=== PATIENT | female | born 1930 | race Caucasian/White ===

== ENCOUNTER 2019-03-21 15:23 | Inpatient (IN) | payer OTHER ==
[~2019-03-21] VITALS: Ht 157.5 cm; Wt 60.9 kg
[2019-03-21] MEDS ORDERED: ONDANSETRON HCL/PF 4 MG/2 ML VIAL IVP ONE (15:30)
[2019-03-21] MEDS ORDERED: IV NS 0.9% 500 ML BAG IV ONE (15:30)
[2019-03-21] MEDS ORDERED: FAMOTIDINE/PF INJ 20 MG/2 ML VIAL IV ONE ×2 (15:30→15:43)
[2019-03-21] MEDS ORDERED: ONDANSETRON HCL/PF 4 MG/2 ML VIAL ONE ×2 (15:43→16:14)
[2019-03-21 15:49] LABS: BASOPHILS % (AUTO) 0.1 % (0.0-2.0); HEMATOCRIT 35 % (33-45); HEMOGLOBIN 11.6 g/dL (11.5-14.8); LYMPHOCYTES # (AUTO) 0.1 /CMM (0.8-4.8); LYMPHOCYTES % (AUTO) 1.1 % (20.0-44.0); MEAN CORPUSCULAR HGB CONC 33 g/dl (31.0-36.0); MEAN CORPUSCULAR VOLUME 96 fL (82-100); MONOCYTES % (AUTO) 11.3 % (2.0-12.0); NEUTROPHILS # (AUTO) 7.7 /CMM (1.8-8.9); NEUTROPHILS % (AUTO) 87.5 % (43.0-81.0); PLATELET COUNT (AUTO) 391 /CMM (150-450); WHITE BLOOD COUNT (AUTO) 8.8 K/uL (4.3-11.0)
[2019-03-21] MEDS ORDERED: LORA-259 PO (15:56)
[2019-03-21] MEDS ORDERED: HYDR-4384 PO (15:56)
[2019-03-21] MEDS ORDERED: MAGN400O6 PO (15:56)
[2019-03-21] MEDS ORDERED: MULT-447 PO (15:56)
[2019-03-21] MEDS ORDERED: CHOL200026 PO (15:56)
[2019-03-21] MEDS ORDERED: ASCO500T9 PO (15:56)
[2019-03-21] MEDS ORDERED: ONDA4TAB10 PO (15:56)
[2019-03-21] MEDS ORDERED: LACT10SO PO (15:56)
[2019-03-21] MEDS ORDERED: ZOLP5TAB2 PO (15:56)
[2019-03-21] MEDS ORDERED: FOLI0.8T PO (15:56)
[2019-03-21] MEDS ORDERED: CALC500T52 PO (15:56)
[2019-03-21] MEDS ORDERED: LATA2.5D7 EACHEYE (15:56)
[2019-03-21] MEDS ORDERED: AMIN30LI2 PO (15:56)
[2019-03-21] MEDS ORDERED: ACET100V5 NEB (15:56)
[2019-03-21] MEDS ORDERED: METH5TAB6 PO (15:56)
[2019-03-21] MEDS ORDERED: BISA10SU11 RC (15:56)
[2019-03-21] MEDS ORDERED: IPRA3AMP23 IH (15:56)
[2019-03-21] MEDS ORDERED: ACET-868 PO (15:56)
[2019-03-21] MEDS ORDERED: LEVA0.31 IH (15:56)
[2019-03-21] MEDS ORDERED: FERR325T24 PO (15:56)
[2019-03-21] MEDS ORDERED: NA P133E RC (15:56)
[2019-03-21] MEDS ORDERED: METH2.5T PO (15:56)
[2019-03-21 16:03] LABS: APPEARANCE,URINE Clear (CLEAR); BILIRUBIN,URINE SMALL (NEGATIVE); BLOOD, URINE Negative Ery/uL (NEGATIVE); COLOR,URINE Dark (YELLOW); KETONES,URINE Negative (NEGATIVE); LEUKOCYTE ESTERASE ,URINE Negative (NEGATIVE); NITRITE, URINE Negative (NEGATIVE); PROTEIN,URINE Trace mg/dl (NEGATIVE); UGLUCOSE Negative (NEGATIVE); UROBILINOGEN,URINE 0.2 EU/dL (0.2)
[2019-03-21 16:16] LABS: ALANINE AMINOTRANSFERASE 23 U/L (12-78); ALBUMIN 2.2 g/dL (3.4-5.0); ALKALINE PHOSPHATASE 140 U/L (46-116); ASPARTATE AMINOTRANSFERASE 25 U/L (15-37); BILIRUBIN,DIRECT 0.2 mg/dL (0.0-0.2); BILIRUBIN,TOTAL 0.4 mg/dL (0.2-1.0); CALCIUM, SERUM 9.2 mg/dL (8.5-10.1); CARBON DIOXIDE 16 mmol/L (21-32); CHLORIDE 92 mmol/L (98-107); CREATININE 4.2 mg/dL (0.6-1.3); GLUCOSE 135 mg/dL (74-106); LIPASE 181 U/L (73-393); POTASSIUM 5.7 mmol/L (3.5-5.1); SODIUM SERUM 127 mmol/L (136-145); TOTAL PROTEIN, SERUM 6.1 g/dL (6.4-8.2)
[2019-03-21 16:17] LABS: BACTERIA,URINE None seen /HPF (None Seen); RBC,URINE NONE SEEN /HPF (0-2); SQUAMOUS EPITHELIAL CELL,UR Rare /HPF (None Seen); URINE AMORPHOUS PHOSPHATES Many /HPF (None Seen); WBC,URINE NONE SEEN /HPF (0-3)
[2019-03-21 16:22] LABS: UREA NITROGEN, BLOOD 114 mg/dL (7-18)
[2019-03-21] MEDS ORDERED: ONDANSETRON HCL/PF 4 MG/2 ML VIAL IV ONE ×2 (16:30→20:30)
[2019-03-21] MEDS ORDERED: IV NS 0.9% 1,000 ML BAG IV ONE ×2 (17:30→20:30)
[2019-03-21] MEDS ORDERED: PROCHLORPERAZINE EDISYLATE 10 MG/2 ML VIAL IVP ONE (23:30)
[2019-03-22] VITALS (7 sets, daily range): BP systolic 104–119; BP diastolic 45–75
[2019-03-22] MEDS ORDERED: PROCHLORPERAZINE EDISYLATE 10 MG/2 ML VIAL ONE (00:46)
[2019-03-22 03:28] LABS: ABG BASE EXCESS -13.8 mmol/L; ABG OXYGEN SATURATION 86.9 % (92.0-98.5); ABG PCO2 22.4 mmHg (35.0-45.0); ABG PO2 59.3 mmHg (75.0-100.0); AaDO2 200.1 mmHg; COHb 0.3 % (0.5-1.5); MetHb 0.5 % (0.0-1.5); O2Hb 86.2 % (94.0-97.0); SITE, ABG Left Radial; VENT MODE, BG 4L NC
[2019-03-22] MEDS ORDERED: IV NS 0.9% 1,000 ML BAG IV SCH (04:00)
[2019-03-22] MEDS ORDERED: IV NS 0.9% 1,000 ML IV PRN ×2 (05:00)
[2019-03-22] MEDS ORDERED: SODIUM POLYSTYRENE SULFONATE 15 G/60 ML BOTTLE PO ONE (05:30)
[2019-03-22] MEDS ORDERED: SODIUM POLYSTYRENE SULFONATE 15 G/60 ML BOTTLE ONE (05:46)
[2019-03-22 06:08] LABS: ABG BASE EXCESS -14.3 mmol/L; ABG OXYGEN SATURATION 97.9 % (92.0-98.5); ABG PCO2 21.9 mmHg (35.0-45.0); ABG PH 7.293 (7.350-7.450); ABG PO2 137.7 mmHg (75.0-100.0); AaDO2 409.7 mmHg; COHb 0.3 % (0.5-1.5); MetHb 0.4 % (0.0-1.5); O2Hb 97.2 % (94.0-97.0); SITE, ABG Right Radial; VENT MODE, BG 15L NRB
[2019-03-22 06:24] LABS: CALCIUM, SERUM 8.1 mg/dL (8.5-10.1); CARBON DIOXIDE 16 mmol/L (21-32); CHLORIDE 99 mmol/L (98-107); CREATININE 3.9 mg/dL (0.6-1.3); GLUCOSE 115 mg/dL (74-106); POTASSIUM 5.7 mmol/L (3.5-5.1); SODIUM SERUM 130 mmol/L (136-145)
[2019-03-22 06:28] LABS: BASOPHILS % (AUTO) 0.1 % (0.0-2.0); HEMATOCRIT 33 % (33-45); HEMOGLOBIN 10.9 g/dL (11.5-14.8); LYMPHOCYTES # (AUTO) 0.1 /CMM (0.8-4.8); LYMPHOCYTES % (AUTO) 1.1 % (20.0-44.0); MEAN CORPUSCULAR HGB CONC 33 g/dl (31.0-36.0); MEAN CORPUSCULAR VOLUME 96 fL (82-100); MONOCYTES % (AUTO) 12.5 % (2.0-12.0); NEUTROPHILS # (AUTO) 6.6 /CMM (1.8-8.9); NEUTROPHILS % (AUTO) 86.3 % (43.0-81.0); PLATELET COUNT (AUTO) 351 /CMM (150-450); RED BLOOD CELL COUNT(AUTO) 3.44 MIL/uL (4.0-5.2); WHITE BLOOD COUNT (AUTO) 7.7 K/uL (4.3-11.0)
[2019-03-22 07:55] LABS: UREA NITROGEN, BLOOD 109 mg/dL (7-18)
[2019-03-22] MEDS ORDERED: NA PHOS,M-B/NA PHOS,DI-BA 1 EA ENEMA RC PRN (08:30)
[2019-03-22] MEDS ORDERED: HYDROCODONE/APAP 5/325MG 1 EACH TABLET PO PRN ×2 (08:30)
[2019-03-22] MEDS ORDERED: ONDANSETRON 4 MG TAB.RAPDIS PO PRN (08:30)
[2019-03-22] MEDS ORDERED: IPRATROPIUM NEB FS 0.5 MG/2.5 ML AMPUL.NEB NEB PRN (08:30)
[2019-03-22] MEDS ORDERED: METHOTREXATE SODIUM (2.5MG) 2.5 MG TABLET PO SCH (08:30)
[2019-03-22] MEDS ORDERED: HOME MED MISCELLANEOUS XX SCH (08:30)
[2019-03-22] MEDS ORDERED: ALBUTEROL FS 2.5 MG/3 ML VIAL.NEB NEB PRN (08:30)
[2019-03-22] MEDS ORDERED: LORAZEPAM 1 MG TABLET PO PRN (08:30)
[2019-03-22] MEDS ORDERED: ACETAMINOPHEN 325 MG TABLET PO PRN (08:30)
[2019-03-22] MEDS ORDERED: MAGNESIUM HYDROXIDE 30 ML UDC PO PRN (08:30)
[2019-03-22] MEDS ORDERED: FERROUS SULFATE (325 MG) 325 MG/TAB TABLET PO SCH (09:00)
[2019-03-22] MEDS ORDERED: ASCORBIC ACID 500 MG TABLET PO SCH (09:00)
[2019-03-22] MEDS ORDERED: CALCIUM CARBONATE (1250) 500 MG TABLET PO SCH (09:00)
[2019-03-22] MEDS ORDERED: CHOLECALCIFEROL 1,000 UNIT TABLET (VIT D3) PO SCH (09:00)
[2019-03-22] MEDS ORDERED: METHIMAZOLE (5MG) 5 MG TABLET PO SCH (09:00)
[2019-03-22] MEDS ORDERED: LACTULOSE 10 G/15 ML UDC (PYXIS) PO SCH (09:00)
[2019-03-22] MEDS ORDERED: BISACODYL SUPP (10 MG) 10 MG/SUPP.RECT SUPP.RECT RC SCH (09:00)
[2019-03-22] MEDS ORDERED: PROSOURCE / PROSTAT (PYXIS) 30 ML UDC GT SCH (09:00)
[2019-03-22] MEDS ORDERED: MULTIVITAMINS,THERAGRAN 1 UDTAB TABLET PO SCH (09:00)
[2019-03-22] MEDS ORDERED: PIPERACILLIN /TAZOBACTAM 2.25 G in IV D5W 50 ML IV SCH (09:00)
[2019-03-22] MEDS ORDERED: FOLIC ACID 1 MG TABLET PO SCH (09:00)
[2019-03-22] MEDS ORDERED: MORPHINE SULFATE INJ 4 MG/ML DISP.SYRIN IV PRN (09:30)
[2019-03-22] MEDS ORDERED: LORAZEPAM INJ 2 MG/ML VIAL IV PRN (09:30)
[2019-03-22] MEDS ORDERED: ONDANSETRON HCL/PF 4 MG/2 ML VIAL IV PRN (09:30)
[2019-03-22] MEDS: ALBUTEROL HALF STRENGTH 1.25 MG/3 ML VIAL.NEB NEB SCH ×2 (13:58→19:39)
[2019-03-22] MEDS ORDERED: ACETYLCYSTEINE 10% SOLN 400 MG/4 ML VIAL NEB SCH (15:30)
[2019-03-22] MEDS ORDERED: LEVALBUTEROL HCL NEB 1.25 MG/0.5 ML VIAL.NEB NEB SCH (15:30)
[2019-03-22] MEDS ORDERED: ZOLPIDEM TARTRATE 5 MG TABLET PO SCH (22:00)
[2019-03-22] MEDS ORDERED: LATANOPROST EYE DROP 0.005% 2.5 ML BOTTLE EACHEYE SCH (22:00)
[2019-03-23 06:41] LABS: BASOPHILS % (AUTO) 0.1 % (0.0-2.0); HEMATOCRIT 33 % (33-45); HEMOGLOBIN 10.9 g/dL (11.5-14.8); LYMPHOCYTES # (AUTO) 0.1 /CMM (0.8-4.8); LYMPHOCYTES % (AUTO) 1.1 % (20.0-44.0); MEAN CORPUSCULAR HGB CONC 33 g/dl (31.0-36.0); MEAN CORPUSCULAR VOLUME 96 fL (82-100); MONOCYTES # (AUTO) 1.1 /CMM (0.1-1.30); MONOCYTES % (AUTO) 11.2 % (2.0-12.0); NEUTROPHILS # (AUTO) 8.7 /CMM (1.8-8.9); NEUTROPHILS % (AUTO) 87.6 % (43.0-81.0); PLATELET COUNT (AUTO) 332 /CMM (150-450); RED BLOOD CELL COUNT(AUTO) 3.43 MIL/uL (4.0-5.2); WHITE BLOOD COUNT (AUTO) 9.9 K/uL (4.3-11.0)
[2019-03-23 07:08] LABS: ALANINE AMINOTRANSFERASE 30 U/L (12-78); ALBUMIN 1.8 g/dL (3.4-5.0); ALKALINE PHOSPHATASE 129 U/L (46-116); ASPARTATE AMINOTRANSFERASE 81 U/L (15-37); BILIRUBIN,TOTAL 0.5 mg/dL (0.2-1.0); CALCIUM, SERUM 8.3 mg/dL (8.5-10.1); CARBON DIOXIDE 14 mmol/L (21-32); CHLORIDE 101 mmol/L (98-107); CREATININE 4.2 mg/dL (0.6-1.3); GLUCOSE 94 mg/dL (74-106); MAGNESIUM 2.2 mg/dL (1.8-2.4); POTASSIUM 5.7 mmol/L (3.5-5.1); SODIUM SERUM 133 mmol/L (136-145); TOTAL PROTEIN, SERUM 5.3 g/dL (6.4-8.2)
[2019-03-23 07:12] LABS: UREA NITROGEN, BLOOD 127 mg/dL (7-18)
== END 2019-03-22 22:00 | disposition hospice, home (50) | DRG 189 ==
LOC: ER 15:31 → TELE 03-22 03:32 → MED 03-22 14:19
PROVIDERS: ADMIT Internal Medicine; ATTEND Internal Medicine
DX: J96.91 Respiratory failure, unspecified with hypoxia (principal); J69.0 Pneumonitis due to inhalation of food and vomit; N17.9 Acute kidney failure, unspecified; R18.0 Malignant ascites; E46 Unspecified protein-calorie malnutrition; E87.1 Hypo-osmolality and hyponatremia; E86.0 Dehydration; C54.1 Malignant neoplasm of endometrium; D64.9 Anemia, unspecified; E87.5 Hyperkalemia; I10 Essential (primary) hypertension; Z51.5 Encounter for palliative care; Z90.710 Acquired absence of both cervix and uterus; F03.90 Unspecified dementia, unspecified severity, without behavioral disturbance, psychotic disturbance, mood disturbance, and anxiety; K22.2 Esophageal obstruction; H40.9 Unspecified glaucoma; Z68.24 Body mass index [BMI] 24.0-24.9, adult
CPT/HCPCS: 36415; 36600; 71045-TC; 80048-TC; 80053-TC; 80076-TC; 81000-TC; 82803-TC; 82962-TC; 83690-TC; 83735-TC; 84484-TC; 85025-TC; 85730-TC; 87081-TC; 94799-TC; G0378; J0780; J2405; J2543; J3490; J7030; J7040; J7060

== ENCOUNTER 2019-03-22 23:02 | Inpatient (IN) | payer OTHER ==
[~2019-03-22] VITALS: Ht 157.5 cm; Wt 60.8 kg
[2019-03-22 21:00] VITALS: BP 119/75
[~2019-03-22 23:02] MED LIST: ACET-868 PO; ACET100V5 NEB; AMIN30LI2 PO; ASCO500T9 PO; BISA10SU11 RC; CALC500T52 PO; CHOL200026 PO; FERR325T24 PO; FOLI0.8T PO; HYDR-4384 PO; IPRA3AMP23 IH; LACT10SO PO; LATA2.5D7 EACHEYE; LEVA0.31 IH; LORA-259 PO; MAGN400O6 PO; METH2.5T PO; METH5TAB6 PO; MULT-447 PO; NA P133E RC; ONDA4TAB10 PO; ZOLP5TAB2 PO
[2019-03-22 23:30] VITALS: BP 119/75
[2019-03-23] MEDS: MORPHINE SULFATE INJ 2 MG/ML DISP.SYRIN IV PRN ×6 (04:03→18:41)
[2019-03-23 04:07] VITALS: BP 119/75
[2019-03-23 08:00] VITALS: BP 111/53
[2019-03-23] MEDS: LORAZEPAM INJ 2 MG/ML VIAL IV PRN ×2 (13:14→19:51)
[2019-03-23 16:00] VITALS: BP 73/40
[2019-03-23 20:00] VITALS: BP 102/46
[2019-03-23] MEDS ORDERED: SCOPOLAMINE HBR 1 EA PATCH.TD72 TD SCH (23:00)
[2019-03-23] MEDS ORDERED: SCOPOLAMINE HBR 1 EA PATCH.TD72 TD ONE (23:33)
== END 2019-03-24 02:30 | disposition expired | DRG 754 ==
LOC: HOSPICE 23:02
PROVIDERS: ADMIT Nurse Practitioner Acute Care; ATTEND Internal Medicine
DX: C54.1 Malignant neoplasm of endometrium (principal); N17.0 Acute kidney failure with tubular necrosis; E87.1 Hypo-osmolality and hyponatremia; R18.0 Malignant ascites; E46 Unspecified protein-calorie malnutrition; I10 Essential (primary) hypertension; H40.9 Unspecified glaucoma; E86.0 Dehydration; Z51.5 Encounter for palliative care; Z66 Do not resuscitate; D64.9 Anemia, unspecified; E87.5 Hyperkalemia; Z68.24 Body mass index [BMI] 24.0-24.9, adult
CPT/HCPCS: G0378; J2060; J2270